=== PATIENT | female | born 1960 | race Caucasian/White ===

== ENCOUNTER 2024-01-27 19:58 | Outpatient (CLI) | payer MEDICARE, SELFPAY ==
--- NOTE | 2024-02-10 12:00 | W.PM.SLEEP ---
Sleep Study Details Details Interpreting Provider: Oseas Date of Sleep Study: 01/27/24 Sleep Study Details: STUDY TYPE:? Home unattended ? BMI:? Not recorded ORDERING PROVIDER: Oseas INDICATION:? Concerns about sleep apnea ? SLEEP SUMMARY:? 503.5 minutes monitored RESPIRATORY SUMMARY:? AHI 5.8 Low oxygen 88 0.7% of study oxygen less than 90% Snoring 70.4% PERIODIC LIMB MOVEMENTS OF SLEEP:? Not recorded CARDIAC:? 64.2 beats per minute IMPRESSION:? Mild obstructive sleep apnea RECOMMENDATION: Treatment options include CPAP, dental appliance, weight loss if indicated and/or airway expansion surgery.
== END 2024-01-27 19:59 | disposition home or self-care (01) ==
LOC: SLEEP 20:00
PROVIDERS: Visit Provider Otolaryngology
DX: G47.33 Obstructive sleep apnea (adult) (pediatric) (principal)
CPT/HCPCS: 95806